=== PATIENT | female | born 1940 | race Caucasian/White ===

== ENCOUNTER 2018-05-08 14:30 | Emergency (ER) | payer BC, SELFPAY ==
[2018-05-08 14:43] VITALS: BP 147/79; PULSE 77; RESP 17; TEMP 37.2; O2SAT 97
--- NOTE | 2018-05-08 15:06 | ED_ITS ---
HPI - Neck Pain/Injury <SHELIA Almaguer - Last Filed: 05/08/18 22:08> General Chief Complaint: Neck Pain/Injury Stated Complaint: CANNOT TURN HEAD,NECK ACHE Time Seen by Provider: 05/08/18 15:00 History of Present Illness HPI Narrative: 78-year-old female with pain into her left side of the neck. She reports that the pain started yesterday. She states that there was no trauma to the neck. She is able to ambulate in the emergency room. No loss of bladder or bowel control. She denies any strenuous activity. She does state that she was knitting most of the day yesterday and noticed the pain later. She denies any other concerns or complaints. Reports increased pain with moving her head to the left and right. Decreased pain with hold her head still. MD complaint: neck pain Related Data Home Medications Medication Instructions Recorded Confirmed citalopram 20 mg PO QDAY #0 09/08/12 CALCIUM CARBONATE (CALCI-MIX~) 500 mg PO Q DAY #0 08/06/13 atorvastatin [Lipitor] 10 mg PO HS #0 tab 08/06/13 CHOLECALCIFEROL (VITAMIN D) 2,000 units PO QDAY #0 tab 08/20/13 OMEGA-3 FATTY ACIDS (FISH OIL) 500 mg PO Q DAY #0 11/01/16 magnesium oxide 400 mg PO Q DAY #0 11/01/16 Previous Rx's Medication Instructions Recorded cyclobenzaprine 5 mg PO TID PRN #10 tab 05/08/18 Allergies Allergy/AdvReac Type Severity Reaction Status Date / Time No Known Drug Allergies Allergy Verified 05/08/18 14:48 Review of Systems <SHELIA Almaguer - Last Filed: 05/08/18 22:08> Constitutional Denies chills, Denies fever(s), Denies lethargy and Denies weakness Eyes Denies change in vision, Denies eye discharge, Denies irritation and Denies loss of vision ENT Ears, Nose, Mouth, and Throat: Denies change in voice, Denies neck pain and Denies sore throat Cardiovascular Denies chest pain, Denies irregular heart rhythm, Denies lightheadedness, Denies palpitations, Denies dyspnea, Denies dyspnea on exertion and Denies orthopnea Respiratory Denies cough, Denies dyspnea, Denies dyspnea on exertion and Denies wheezing Gastrointestinal Gastrointestinal: Denies abdominal pain, Denies change in bowel habits, Denies diarrhea, Denies nausea and Denies vomiting Genitourinary Denies hematuria, Denies flank pain, Denies urinary incontinence and Denies urinary urgency Musculoskeletal Denies neck pain Comments: Neck pain Integumentary/Breasts Denies pruritus, Denies erythema, Denies rash and Denies wounds Neurologic Denies confusion, Denies loss of vision and Denies weakness Psychiatric Denies anxiety, Denies confusion, Denies depression, Denies homicidal ideation and Denies suicidal ideation Endocrine Denies palpitations Allergic/Immunologic Denies wheezing Exam <MARY ANN AlmaguerP - Last Filed: 05/08/18 22:08> Initial Vital Signs Initial Vital Signs: Vital Signs Temperature 99 F 05/08/18 14:43 Pulse Rate 77 05/08/18 14:43 Respiratory Rate 17 05/08/18 14:43 Blood Pressure 147/79 H 05/08/18 14:43 Pulse Oximetry 97 05/08/18 14:43 Const General: cooperative and well developed Nutritional Appearance: well nourished Orientation: alert, awake, oriented x3 and not confused [facility] Mouth: oral mucosae normal and moist mucous membranes Eyes Conjunctivae: conjunctivae normal Sclera: sclerae normal Pupils: PERRL EOM: EOM intact bilaterally Neck Neck: normal visual inspection, trachea midline, No lymphadenopathy, No midline deformity and No JVD Thyroid: tender (Tenderness to the left paraspinal area on palpation. No midline tenderness full range of motion to all extremities. Distal sensation intact to all extremities) Lymphatic: No lymphedema Resp Effort & Inspection: normal respiratory effort, able to speak in complete sentences, no respiratory distress and no use of accessory muscles Auscultation: clear to auscultation bilaterally, no rales, no rhonchi and no wheezes Cardio Rate: regular rate Rhythm: regular rhythm Heart Sounds: no click, no gallops, no murmurs and no rubs Pulses: normal peripheral pulses Skin General: no rashes or lesions noted, No jaundice and No petechiae Neuro Motor: muscle tone normal throughout Sensory Exam: no sensory deficits noted <Renny Rios DO - Last Filed: 05/09/18 08:05> Initial Vital Signs Initial Vital Signs: Vital Signs Temperature 99 F 05/08/18 14:43 Pulse Rate 77 05/08/18 14:43 Respiratory Rate 17 05/08/18 14:43 Blood Pressure 147/79 H 05/08/18 14:43 Pulse Oximetry 97 05/08/18 14:43 Course <SHELIA Almaguer - Last Filed: 05/08/18 22:08> Vital Signs - 8 hr 05/08/18 14:43 05/08/18 15:31 Temperature 99 F Pulse Rate 77 74 Respiratory Rate 17 Blood Pressure 147/79 H Blood Pressure [Right Arm] 125/65 H Pulse Oximetry 97 94 <Renny Rios DO - Last Filed: 05/09/18 08:05> Vital Signs - 8 hr 05/08/18 14:43 05/08/18 15:31 Temperature 99 F Pulse Rate 77 74 Respiratory Rate 17 Blood Pressure 147/79 H Blood Pressure [Right Arm] 125/65 H Pulse Oximetry 97 94 MDM - Neck Pain/Injury <SHELIA Almaguer - Last Filed: 05/08/18 22:08> MDM Narrative Medical decision making narrative: Signs and symptoms presents as acute torticollis. [id number] ibuprofen as needed for discomfort. Cyclobenzaprine is prescribed to help with muscle spasm/tension. Follow up with primary care provider next week for re-evaluation. Patient instructed to be aware of drowsiness due to the cyclobenzaprine. Warm compresses to the sore muscles. Return emergency room for any worsening Discharge Plan Departure Patient Disposition: Home, Self-Care Clinical Impression: Acute torticollis Discharge Date/Time: 05/08/18 15:50 Interventions: ED Discharge Assessment Last Done: 05/08/18 15:36 Instructions: DI for Neck Pain Activity Restrictions/Additional Instructions: Signs and symptoms presents as acute torticollis. [id number] ibuprofen as needed for discomfort. Cyclobenzaprine is prescribed to help with muscle spasm/tension. Follow up with primary care provider next week for re- evaluation. Patient instructed to be aware of drowsiness due to the cyclobenzaprine. Warm compresses to the sore muscles. Return emergency room for any worsening Prescriptions: New cyclobenzaprine 5 mg tablet 5 mg PO TID PRN (Reason: muscle spasm) Qty: 10 RF: 0 No Action citalopram 10 MG tablet 20 mg PO QDAY Qty: 0 RF: 0 atorvastatin [Lipitor] 20 MG tablet 10 mg PO HS Qty: 0 RF: 0 CALCIUM CARBONATE (CALCI-MIX~) 500 mg PO Q DAY Qty: 0 RF: 0 CHOLECALCIFEROL (VITAMIN D) 2,000 units PO QDAY Qty: 0 RF: 0 magnesium oxide 400 MG capsule 400 mg PO Q DAY Qty: 0 RF: 0 OMEGA-3 FATTY ACIDS (FISH OIL) 500 mg PO Q DAY Qty: 0 RF: 0 Referrals: Mariaelena Linton MD [Primary Care Provider] - <Renny Rios DO - Last Filed: 05/09/18 08:05> Cosign ED Attending Kirstin Attestation: I was available for consultation during this patient's emergency department encounter
[2018-05-08 15:31] VITALS: BP 125/65; PULSE 74; O2SAT 94
== END 2018-05-08 15:50 | disposition home or self-care (01) ==
PROVIDERS: Emergency Provider Nurse Practitioner Family; PCP Family Medicine
DX: M43.6 Torticollis (principal)
CPT/HCPCS: 99282

== ENCOUNTER 2019-07-04 12:44 | Emergency (ER) | payer BC, SELFPAY ==
[2019-07-04 12:59] VITALS: BP 150/101; PULSE 91; RESP 22; TEMP 36.7; O2SAT 97; BMI 22.4
--- NOTE | 2019-07-04 13:01 | ED_ITS ---
HPI - Extremity Injury (Lower) General Chief Complaint: Extremity Injury, Lower Stated Complaint: Fall, pain worsening Time Seen by Provider: 07/04/19 12:49 Source: patient Mode of arrival: wheelchair Limitations: no limitations History of Present Illness HPI Narrative: Patient is a 79-year-old female who presents with left hip pain. She has a history of a right total hip arthroplasty and left femur fracture. Sh e states that she fell 1 month ago she has been ambulatory with her walker since the fall. However her pain in the left hip has progressively gotten worse. She denies numbness or tingling. No other injuries at the time of fall. She states she is unable to sleep at nighttime due to the pain. MD complaint: hip injury Onset (ago): month(s) (1) Related Data Home Medications Medication Instructions Recorded Confirmed citalopram 20 mg PO QDAY #0 09/08/12 CALCIUM CARBONATE (CALCI-MIX~) 500 mg PO Q DAY #0 08/06/13 atorvastatin [Lipitor] 10 mg PO HS #0 tab 08/06/13 CHOLECALCIFEROL (VITAMIN D) 2,000 units PO QDAY #0 tab 08/20/13 OMEGA-3 FATTY ACIDS (FISH OIL) 500 mg PO Q DAY #0 11/01/16 magnesium oxide 400 mg PO Q DAY #0 11/01/16 Previous Rx's Medication Instructions Recorded cyclobenzaprine 5 mg PO TID PRN #10 tab 05/08/18 tramadol 50 mg PO Q8H PRN #10 tab 07/04/19 Allergies Allergy/AdvReac Type Severity Reaction Status Date / Time No Known Drug Allergies Allergy Verified 07/04/19 13:01 Review of Systems Review of Systems GENERAL: Denies chills,fever HEENT: Denies throat pain RESPIRATORY: Denies dyspnea, cough, wheezing CARDIOVASCULAR: Denies chest pain, palpitations GASTROINTESTINAL: Denies nausea, vomiting MUSCULOSKELETAL: See HPI SKIN: No rash, no laceration, no pruritus NEUROLOGIC: Denies weakness, dizziness, headache, numbness 8 point review of systems is negative except for those stated above and HPI [facility] Medical History Tobacco abuse (Acute) Social History (Updated 07/04/19 @ 14:05 by Jacqueline Cordoba DO) Smoking Status: Current every day smoker alcohol intake: never substance use type: does not use Social History Smoking Status: Current every day smoker alcohol intake: never substance use type: does not use Exam Initial Vital Signs Initial Vital Signs: Vital Signs Temperature 98.1 F 07/04/19 12:59 Pulse Rate 91 H 07/04/19 12:59 Respiratory Rate 22 07/04/19 12:59 Blood Pressure 150/101 H 07/04/19 12:59 Pulse Oximetry 97 07/04/19 12:59 GENERAL: Alert elderly female and in no acute distress. HEENT: Head atraumatic,EOMI, pupils reactive, CARDIOVASCULAR: Regular rate and rhythm without murmurs, rubs or gallops. RESPIRATORY: Breath sounds equal bilaterally, no wheezes rales or rhonchi. ABDOMEN: Soft, nontender. Normoactive bowel sounds all 4 quadrants. No guarding or rebound. EXTREMITIES: Normal range of motion, no clubbing or edema. Neurovascularly intact Pain to palpitation over left hip. Legs are of equal length. No pain with internal external rotation of hip. Distal pedal pulse intact. Right hip has full range of motion without pain. NEUROLOGICAL: Alert and oriented x4.Normal gait and speech. Cranial nerves II through XII grossly intact. SKIN: Warm, dry, no laceration, no petechiae, no rashes or lesions. Course Orders Ordered: ED Orders 07/04/19 12:59 XR hip w pel if done LT 2V Stat Vital Signs - 8 hr 07/04/19 12:59 07/04/19 14:29 Temperature 98.1 F Pulse Rate 91 H 85 Respiratory Rate 22 17 Blood Pressure 150/101 H Blood Pressure [Right Arm] 107/69 Pulse Oximetry 97 95 MDM - Extremity Injury (Lower) Imaging Data left hip XR: Radiologist's impression: PROCEDURE: XR HIP W PEL IF DONE LT 2V INDICATIONS: fall pain 1 month ago TECHNIQUE: AP pelvis with lateral view(s) of the left hip. [id number] 19:55[facility] [id number] W PEL IF PERFD, 03/18/2016, 18:53. FINDINGS: Bones: No fractures or dislocations, but there is stable appearance of previously present partially visualized right total hip arthroplasty and a dynamic hip screw with short medullary lorraine on the left previously placed in 2016 for fixation of a intertrochanteric hip fracture at that time. Pelvic ring appears intact. No suspicious bony lesions. There is mild malalignment at the symphysis pubis, likely posttraumatic in this clinical circumstance, but stable over time from July 2016. Soft tissues: The visualized bowel gas pattern is normal. No suspicious soft tissue calcifications. IMPRESSION: Postsurgical changes stable over time, no evidence of device loosening or disruption. No recent trauma found. If there is clinical concern for head and trauma screening pelvic MRI without contrast may be warranted. Dictated by: Reggie Lawson M.D. on 07/04/2019 at 13:28 MDM Narrative Medical decision making narrative: Patient had no acute fracture head read does not show any loosening. Pain and injury happened a month ago. At this time I offered her tramadol to take at nighttime. I strongly requested and recommended she walk with a walker. Both her daughter and patient agree to. At this time I do not think any need for CT. Discharge Plan Departure Patient Disposition: Home Clinical Impression: Injury of hip, left Qualifiers: Encounter type: initial encounter Qualified Code(s): S79.912A - Unspecified injury of left hip, initial encounter Discharge Date/Time: 07/04/19 14:34 Interventions: ED Discharge Assessment Last Done: 07/04/19 14:34 Instructions: DI for Hip Pain Activity Restrictions/Additional Instructions: *You have been diagnosed with left hip pain *What to do: No fracture noted on x-ray at this time. I recommend that you do do some light activity no strenuous activity. However some movement will help. *Continue to take medications as directed Tylenol 650 mg every 4-6 hours if needed for pain Ibuprofen 600 mg every 6-8 hours if needed for pain Tramadol half tablet every 6 hours if needed for severe pain at night time *Follow up with your primary care provider in 2-3 days *Return to ER if you should have increasing pain weakness numbness or tingling or any new, worsening or concerning symptoms CONTROLLED SUBSTANCE DISCHARGE (Narcotoic/benzodiazepine/Flexeril/Phenergan) 1. You have been prescribed narcotic medications, it does have acetaminophen/Tylenol/paracetamol in it so do not take extra Tylenol or Tylenol containing products TRAMADOL DOES NOT CONTAIN ACETAMINOPHEN 2. Please understand that we cannot provide further refills of narcotics, benzodiazepines or controlled substances through the ED and her pain management will need to be through your provider. 3. While on these medications you cannot drive or operate heavy machinery. 4. You cannot sign legal documents or perform any duties such as this. 5. As long as you're taking opiate pain medications he should also be taking a stool softener such as Colace, Dulcolax, MiraLAX or prune juice, to help avoid constipation. Prescriptions: New tramadol 50 mg tablet 50 mg PO Q8H PRN (Reason: pain) Qty: 10 RF: 0 No Action citalopram 10 MG tablet 20 mg PO QDAY Qty: 0 RF: 0 atorvastatin [Lipitor] 20 MG tablet 10 mg PO HS Qty: 0 RF: 0 CALCIUM CARBONATE (CALCI-MIX~) 500 mg PO Q DAY Qty: 0 RF: 0 CHOLECALCIFEROL (VITAMIN D) 2,000 units PO QDAY Qty: 0 RF: 0 magnesium oxide 400 MG capsule 400 mg PO Q DAY Qty: 0 RF: 0 OMEGA-3 FATTY ACIDS (FISH OIL) 500 mg PO Q DAY Qty: 0 RF: 0 cyclobenzaprine 5 mg tablet 5 mg PO TID PRN (Reason: muscle spasm) Qty: 10 RF: 0 Referrals: Mariaelena Linton MD [Primary Care Provider] -
[2019-07-04 14:29] VITALS: BP 107/69; PULSE 85; RESP 17; O2SAT 95
== END 2019-07-04 14:34 | disposition home or self-care (01) ==
PROVIDERS: Emergency Provider Emergency Medicine; PCP Family Medicine
DX: S79.912A Unspecified injury of left hip, initial encounter (principal)
CPT/HCPCS: 73502; 99282; 99283